=== PATIENT | female | born 1960 | race Caucasian/White ===

== ENCOUNTER → 2017-09-04 | Day surgery (SDC) | payer OTHER ==
[~2017-09-04] MED LIST: BIOT50006 PO; ONABOTULINUMTOXINA INJ 100 UNITS/VIAL ONE; ONDANSETRON HCL 4 MG/2 ML VIAL IV PUSH ONE; PAPATAB PO; PROPOFOL 500 MG/50 ML BTL IV ONE; PROT40TA PO; REST0.05 EACH EYE; SODIUM CHLORIDE 0.9% INJ 10 ML ONE
--- NOTE | 2017-09-04 15:05 | GIPROC ---
[facility] [address] [address] [place], [address] EGD PROCEDURE REPORT EXAM DATE: 09/04/2017 PATIENT NAME: Paz Gray MR #: [id number] BIRTHDATE: 1960 ATTENDING: Charles Lewis MD ORDER #: [id number] HAND BOBBIN CLEANER: Eliceo Mitchell RN STATUS: outpatient INDICATIONS: The patient is a 57 yr old female here for an EGD due to epigastric abdominal pain and dyspepsia PROCEDURE PERFORMED: EGD w/ directed submucosal injection(s), any substance MEDICATIONS: None and Per Anesthesia. TOPICAL ANESTHETIC: CONSENT: The patient understands the risks and benefits of the procedure and understands that these risks include, but are not limited to: sedation, allergic reaction, infection, perforation and/or bleeding. Alternative means of evaluation and treatment include, among others: physical exam, x-rays, and/or surgical intervention. The patient elects to proceed with this endoscopic procedure. medical equipment was checked for proper function. Hand hygiene and appropriate measures for infection prevention was taken. After the risks, benefits and alternatives of the procedure were thoroughly explained, Informed consent was verified, confirmed and timeout was successfully executed by the treatment team. The patient was anesthetized with topical anesthesia and the EC-3890Li ([id number]) endoscope was introduced through the mouth and advanced to the second portion of the duodenum. Retroflexed views revealed no abnormalities The gastroscope was then slowly withdrawn and removed. ESOPHAGUS: The mucosa of the esophagus appeared normal. STOMACH: There was mild gastritis in the gastric antrum. Injected with a total of 3 cc of botox around the pylorus. ADVERSE EVENTS: There were no complications. IMPRESSIONS: 1. The esophagus appeared normal 2. There was mild gastritis in the gastric antrum 3. Retroflexed views revealed no abnormalities RECOMMENDATIONS: 1. Anti-reflux regimen 2. Continue PPI PATIENT CONDITION: stable DISPOSITION: Home REPEAT EXAM: Return 1 year EGD Charles Lewis MD eSigned: Charles Lewis MD 09/04/2017 3:05 PM cc: Lavelle Jacobson [facility] Yajaira Sullivan M.D.
--- NOTE | 2017-09-04 15:14 | GIPROC ---
[facility] [address] [facility], [address] COLONOSCOPY PROCEDURE REPORT EXAM DATE: 09/04/2017 PATIENT NAME: Paz Gray MR #: [id number] BIRTHDATE: 1960 ENDOSCOPIST: Charles Lewis MD ORDER #: [id number] EMISSION TECHNICIAN: Eliceo Mitchell RN STATUS: outpatient INDICATIONS: The patient is a 57 yr old female here for a colonoscopy due to high risk patient with personal history of colonic polyps PROCEDURE PERFORMED: Colonoscopy with biopsy MEDICATIONS: None and Per Anesthesia. PREP QUALITY: The Guttenberg Bowel Prep Score was Right colon 2, Mid colon 3, and Left colon 3. Total = 8. ESTIMATED BLOOD LOSS: None CONSENT: The patient understands the risks and benefits of the procedure and understands that these risks include, but are not limited to: sedation, allergic reaction, infection, perforation and/or bleeding. Alternative means of evaluation and treatment include, among others: physical exam, x-rays, and/or surgical intervention. The patient elects to proceed with this endoscopic procedure. medical equipment was checked for proper function. Hand hygiene and appropriate measures for infection prevention was taken. After the risks, benefits and alternatives of the procedure were thoroughly explained, Informed consent was verified, confirmed and timeout was successfully executed by the treatment team. A digital exam revealed external hemorrhoids The EC-3890Li ([id number]) endoscope was introduced through the anus and advanced to the cecum, which was identified by both the appendix and ileocecal valve. The instrument was then slowly withdrawn as the colon was fully examined. COLON FINDINGS: A polypoid shaped sessile polyp ranging between 3-5mm in size was found in the rectum. A biopsy was performed using cold forceps. Retroflexed views revealed internal hemorrhoids and Retroflexed views revealed small internal hemorrhoids The scope was then completely withdrawn from the patient and the procedure terminated. PROCEDURE WITHDRAWAL TIME:6minutes ADVERSE EVENTS: There were no complications. IMPRESSIONS: 1. A sessile polyp ranging between 3-5mm in size was found in the rectum; biopsy was performed using cold forceps 2. Retroflexed views revealed internal hemorrhoids 3. Retroflexed views revealed small internal hemorrhoids 4. Revealed external hemorrhoids RECOMMENDATIONS: 1. Await biopsy results. Biopsy results will not be ready for 7-10 days. If you don't hear from us in two weeks, call our office for results. 2. High fiber diet RECALL: Return 5 years Colonoscopy, pending biopsy results Charles Lewis MD eSigned: Charles Lewis MD 09/04/2017 3:14 PM cc: Lavelle Jacobson [facility] Yajaira and Abimbola Sullivan M.D.
== END | disposition home or self-care (01) ==
LOC: ESDC 12:42
PROVIDERS: ATTEND Internal Medicine Gastroenterology
DX: Z12.11 Encounter for screening for malignant neoplasm of colon (principal); Z86.010 Personal history of colon polyps; K64.4 Residual hemorrhoidal skin tags; K62.1 Rectal polyp; K64.8 Other hemorrhoids; R10.13 Epigastric pain; K29.70 Gastritis, unspecified, without bleeding
CPT/HCPCS: 00740; 00810; 43236; 45380; 88305; J0585; J2405; J3010